=== PATIENT | male | born 2005 | race Caucasian/White ===

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

== ENCOUNTER 2023-01-19 10:27 | Outpatient (CLI) | payer MEDICAID ==
[2023-01-19] MEDS ORDERED: ALBUTEROL 1 PUFF INH STA (16:22)
--- NOTE | 2023-01-19 18:00 | XRAY Report ---
PROCEDURE: Chest 1 View X-Ray INDICATIONS: SHORTNESS OF BREATH TECHNIQUE: One view of the chest was acquired. COMPARISON: 06/18/2022 FINDINGS: Surgical changes and devices: None. Lungs and pleura: No pleural effusions or pneumothorax. Lungs are clear. Mediastinum: Mediastinal contours appear normal. Heart size is normal. Bones and chest wall: No suspicious bony lesions. Overlying soft tissues appear unremarkable. IMPRESSION: No acute cardiopulmonary findings Reviewed by: Garrett Platt MD on 01/19/2023 4:59 PM [facility] Approved by: Garrett Platt MD on 01/19/2023 4:59 PM [facility] Station ID: [id number]
== END 2023-01-19 10:28 | disposition home or self-care (01) ==
LOC: RT 10:27
PROVIDERS: ATTEND Nurse Practitioner Acute Care
DX: R06.02 Shortness of breath (principal)
CPT/HCPCS: 94060; 94729

== ENCOUNTER 2023-03-11 17:31 | Outpatient (CLI) | payer MEDICAID | END 2023-03-11 17:32 | disposition EMS.NT | LOC: EMS 17:31 | DX: Z03.89 Encounter for observation for other suspected diseases and conditions ruled out (principal) ==

== ENCOUNTER 2023-04-20 11:29 | Outpatient (CLI) | payer MEDICAID ==
--- NOTE | 2023-04-20 12:21 | XRAY Report ---
PROCEDURE: Ankle 2 View LT INDICATIONS: SPRAIN OF LEFT ANKLE TECHNIQUE: 2 views of the ankle were acquired. COMPARISON: Same day right-sided x-ray. FINDINGS: Bones: No fractures or dislocations. Ankle mortise is normally aligned. No suspicious bony lesions . Soft tissues: No tibiotalar joint effusion. Achilles tendon appears normal. IMPRESSION: No acute bony abnormality. No tibiotalar effusion. Reviewed by: Elijah Cardona on 04/20/2023 12:19 PM PDT Approved by: Elijah Cardona on 04/20/2023 12:19 PM PDT Station ID: [id number]
--- NOTE | 2023-04-20 16:42 | XRAY Report ---
PROCEDURE: Ankle 3 View RT INDICATIONS: SPRAIN OF RIGHT ANKLE TECHNIQUE: 3 views of the ankle were acquired. COMPARISON: None. FINDINGS: Bones: No fractures or dislocations. Ankle mortise is normally aligned. No suspicious bony lesions . There is an ossicle distal to the fibular tip. Soft tissues: No tibiotalar joint effusion. Achilles tendon appears normal. IMPRESSION: 1. There is an ossicle distal to the fibular tip. Given relatively mild soft tissue swelling, the fi nding may be related to remote injury. Recommend clinical correlation. A follow-up x-ray is suggested in 710 days if clinical symptoms persist. Reviewed by: Radha Taveras MD on 04/20/2023 4:40 PM PDT Approved by: Radha Taveras MD on 04/20/2023 4:40 PM PDT Station ID: [id number]
== END 2023-04-20 23:59 | disposition home or self-care (01) ==
LOC: DI.S 11:29
PROVIDERS: ATTEND Physician Assistant Medical
DX: S93.401A Sprain of unspecified ligament of right ankle, initial encounter (principal); S93.402A Sprain of unspecified ligament of left ankle, initial encounter

== ENCOUNTER 2023-04-27 08:00 | Outpatient (CLI) | payer MEDICAID ==
--- NOTE | 2023-04-27 13:32 | XRAY Report ---
PROCEDURE: Ankle 3 View RT INDICATIONS: RIGHT ANKLE FRACTURE TECHNIQUE: 3 views of the ankle were acquired. COMPARISON: None. FINDINGS: Bones: No fractures or dislocations. Ankle mortise is normally aligned. No suspicious bony lesions . Unchanged remote fracture of the lateral malleolus tip. Soft tissues: No tibiotalar joint effusion. Achilles tendon appears normal. IMPRESSION: No acute bony abnormality. Reviewed by: Elijah Cardona on 04/27/2023 11:26 AM PDT Approved by: Elijah Cardona on 04/27/2023 11:26 AM PDT Station ID: [id number]
== END 2023-04-27 23:59 | disposition home or self-care (01) ==
LOC: DI.WOS 08:00
PROVIDERS: ATTEND Physician Assistant Surgical
DX: S82.64XD Nondisplaced fracture of lateral malleolus of right fibula, subsequent encounter for closed fracture with routine healing (principal)

== ENCOUNTER 2023-05-08 22:48 | Emergency (ER) | payer MEDICAID ==
[2023-05-08 23:18] LABS: MUDS CUTOFF CONCENTRATIONS CUTOFF CONC BELOW:
[2023-05-08 23:23] LABS: BASOPHILS # (AUTO) 0.1 10^3/uL (0.0-0.1); BASOPHILS % (AUTO) 0.4 %; EOSINOPHILS # (AUTO) 0.1 10^3/uL (0.0-0.7); EOSINOPHILS % (AUTO) 0.5 %; HCT - HEMATOCRIT 42.6 % (42.0-52.0); HGB - HEMOGLOBIN 14.2 g/dL (14.0-18.0); LYMPHOCYTES # (AUTO) 2.3 10^3/uL (1.5-3.5); LYMPHOCYTES % (AUTO) 20.6 %; MEAN CORPUSCULAR HEMOGLOBIN 30.1 pg (27.0-31.0); MEAN CORPUSCULAR HGB CONC 33.3 g/dL (32.0-36.0); MEAN CORPUSCULAR VOLUME 90.4 fL (80.0-94.0); MEAN PLATELET VOLUME 9.4 fL (7.4-11.4); MONOCYTES # (AUTO) 1.3 10^3/uL (0.0-1.0); MONOCYTES % (AUTO) 11.7 %; NEUTROPHILS # (AUTO) 7.5 10^3/uL (1.5-6.6); NEUTROPHILS % (AUTO) 66.6 %; PLT - PLATELET COUNT 289 10^3/uL (130-450); RED BLOOD COUNT 4.71 10^6/uL (4.70-6.10); RED CELL DISTRIBUTION WIDTH 12.4 % (12.0-15.0); WHITE BLOOD COUNT 11.3 x10^3/uL (4.8-10.8)
[2023-05-08 23:24] LABS: BILIRUBIN,URINE NEGATIVE (NEGATIVE); GLUCOSE, URINE (UA) NEGATIVE (NEGATIVE); KETONES,URINE (UA) NEGATIVE (NEGATIVE); LEUKOCYTE ESTERASE, URINE NEGATIVE (NEGATIVE); NITRITE,URINE NEGATIVE (NEGATIVE); OCCULT BLOOD,URINE NEGATIVE (NEGATIVE); PH,URINE 6.5 PH (5.0-7.5); PROTEIN,URINE NEGATIVE (NEGATIVE); UROBILINOGEN,URINE 0.2 (NORMAL) E.U./dL (NORMAL)
[2023-05-08 23:31] LABS: CLARITY,URINE CLEAR (CLEAR)
[2023-05-08 23:38] LABS: AMPHETAMINE SCREEN,URINE NEGATIVE (NEGATIVE); BARBITURATE SCREEN,UR NEGATIVE (NEGATIVE); BENZODIAZEPINES SCREEN, URINE NEGATIVE (NEGATIVE); COCAINE SCREEN URINE NEGATIVE (NEGATIVE); METHADONE SCREEN, URINE NEGATIVE (NEGATIVE); METHAMPHETAMINES SCREEN, URINE NEGATIVE (NEGATIVE); OPIATE SCREEN, URINE NEGATIVE (NEGATIVE); OXYCODONE SCREEN, URINE NEGATIVE (NEGATIVE); PROPOXYPHENE SCREEN, URINE NEGATIVE (NEGATIVE); THC CANNABINOID SCREEN, URINE NEGATIVE (NEGATIVE); TRICYCLIC ANTIDEPRESSANT,URINE NEGATIVE (NEGATIVE)
[2023-05-08 23:40] LABS: ALBUMIN 4.2 g/dL (3.2-5.5); ALBUMIN/GLOBULIN RATIO 1.3 (1.0-2.2); ALKALINE PHOSPHATASE 104 IU/L (42-121); ALT ALANINE AMINOTRANSFERASE 20 IU/L (10-60); AST ASPARTATE AMINOTRANSFERASE 18 IU/L (10-42); BILIRUBIN,TOTAL 0.7 mg/dL (0.2-1.0); BUN - BLOOD UREA NITROGEN 23 mg/dL (6-20); CALCIUM 9.1 mg/dL (8.5-10.3); CARBON DIOXIDE - CO2 25 mmol/L (21-32); CHLORIDE 105 mmol/L (101-111); CREATININE 0.9 mg/dL (0.6-1.2); GFR - MDRD 109 (>89); GLUCOSE 118 mg/dL (70-100); LIPASE 28 U/L (22-51); POTASSIUM 3.7 mmol/L (3.5-5.0); SODIUM 138 mmol/L (135-145); TOTAL PROTEIN 7.4 g/dL (6.7-8.2)
--- NOTE | 2023-05-08 23:40 | ED Physician Documentation ---
PD HPI MHE - Stated complaint Stated Complaint: SI - Chief complaint Chief Complaint: MHE - History obtained from History obtained from: Patient - Additional information Additional information: HPI from patient Patient tells me "I was trying to commit suicide" (per patient). At approximately 9 PM tonight while at home, he cut his left wrist with a razor blade. Patient is right-hand dominant. Patient denies having history of any acts of self-harm in the past except for superficial arm cutting as a means of coping with stress rather than goal of hurting and/or killing himself. Patient's prescription medications are bupropion and guanfesin, but that he has not taken these for several days. Patient tells me that as soon as he cut his wrist tonight, he immediately regretted doing so. He is calm, pleasant, and cooperative on my H+P. Review of Systems Cardiac: reports: Reviewed and negative Respiratory: reports: Reviewed and negative GI: reports: Reviewed and negative Skin: reports: Laceration (s) Neurologic: denies: Focal weakness, Numbness Psychiatric: reports: Depressed, Suicidal. denies: Homicidal, Hallucinations, Delusions PD PAST MEDICAL HISTORY - Past Medical History Past Medical History: Yes Psych: ADD/ADHD, Other (tourette's syndrome) - Past Surgical History Past Surgical History: No - Present Medications Home Medications: Ambulatory Orders Medication Instructions Recorded Confirmed Cyclobenzaprine [Flexeril] 10 mg PO TID PRN #20 tablet 06/18/22 Ondansetron Odt [Zofran] 4 mg TL Q6H PRN #10 tablet 06/18/22 Doxycycline Monohydrate 100 mg PO BID #28 cap 12/09/22 - Allergies Allergies/Adverse Reactions: Allergies Allergy/AdvReac Type Severity Reaction Status Date / Time No Known Drug Allergies Allergy Verified 05/08/23 23:09 PD ED PE NORMAL - Vitals Vital signs reviewed: Yes - General General: Alert and oriented X 3, No acute distress, Well developed/nourished - Cardiac Cardiac: RRR, No murmur - Respiratory Respiratory: No respiratory distress, Clear bilaterally - Extremities Extremities: Other (left hand: brisk capillary refill in finger tips, strong radial pulse) - Neuro Neuro: No motor deficit (left hand/fingers with full flexion and extension), No sensory deficit (LTS intact left hand, fingers) PD ED PE EXPANDED - Extremities RAFAELA UE/Hands Visual: 1 - laceration (3 cm length with underlying exposed fascia and adipose tissue) Results - Vitals Vitals: Vital Signs - 24 hr 05/09/23 05/09/23 05/09/23 06:39 08:30 09:00 Temperature 36.5 C 35.8 C L Heart Rate 91 76 73 Respiratory 16 15 20 Rate Blood Pressure 117/69 106/66 O2 Saturation 100 100 97 05/09/23 11:45 Temperature 36.4 C L Heart Rate 72 Respiratory 18 Rate Blood Pressure 137/66 H O2 Saturation 100 Oxygen O2 Source Room air - Labs Labs: Laboratory Tests 05/08/23 05/08/23 05/08/23 23:07 23:12 23:12 WBC 11.3 H RBC 4.71 Hgb 14.2 Hct 42.6 MCV 90.4 MCH 30.1 MCHC 33.3 RDW 12.4 Plt Count 289 MPV 9.4 Neut # (Auto) 7.5 H Lymph # (Auto) 2.3 Gallia # (Auto) 1.3 H Eos # (Auto) 0.1 Baso # (Auto) 0.1 Absolute Nucleated RBC 0.00 Nucleated RBC % 0.0 Sodium 138 Potassium 3.7 Chloride 105 Carbon Dioxide 25 Anion Gap 8.0 BUN 23 H Creatinine 0.9 Estimated GFR (MDRD) 109 Glucose 118 H Calcium 9.1 Total Bilirubin 0.7 AST 18 ALT 20 Alkaline Phosphatase 104 Total Protein 7.4 Albumin 4.2 Globulin 3.2 Albumin/Globulin Ratio 1.3 Lipase 28 TSH 2.49 Urine Color YELLOW Urine Clarity CLEAR Urine pH 6.5 Ur Specific [place] 1.020 Urine Protein NEGATIVE Urine Glucose (UA) NEGATIVE Urine Ketones NEGATIVE Urine Occult Blood NEGATIVE Urine Nitrite NEGATIVE Urine Bilirubin NEGATIVE Urine Urobilinogen 0.2 (NORMAL) Ur Leukocyte Esterase NEGATIVE Ur Microscopic Review NOT INDICATED Urine Culture Comments NOT INDICATED Salicylates < 1.5 Urine Opiates Screen NEGATIVE Ur Oxycodone Screen NEGATIVE Urine Methadone Screen NEGATIVE Ur Propoxyphene Screen NEGATIVE Acetaminophen 0.2 Ur Barbiturates Screen NEGATIVE Ur Tricyclics Screen NEGATIVE Ur Phencyclidine Scrn NEGATIVE Ur Amphetamine Screen NEGATIVE U Methamphetamines Scrn NEGATIVE U Benzodiazepines Scrn NEGATIVE Urine Cocaine Screen NEGATIVE U Cannabinoids Screen NEGATIVE Ethyl Alcohol < 10.0 Procedures - Laceration (location) Upper extremity left Anterior Length in cm: 3 Wound type: Linear, Into subcut fat, Clean Neurovascular status: Sensory intact, Motor intact, Vascular intact Tendon involvement: Tendon intact Anesthesia: Lidocaine 1% Wound preparation: Chlorhexadine, Irrigated copiously NS, Wound explored Skin layer closure: Nylon, Interrupted (solitary simple interrupted suture in proximal-most part of laceration), Running (7 throws), Sutures - enter # (4-0) Other: Patient tolerated well, No complications, Neurovascular intact, Dressing applied PD Medical Decision Making - ED course Complexity details: reviewed results, re-evaluated patient, considered differential, d/w patient ED course: Options for treatment are discussed with patient during initial H&P. I asked him if he feels strongly about wanting to be discharged versus inpatient treatment, and he is not sure what his preference would be. He says he does feel he needs treatment for mental health problems, and would prefer not to be inpatient, but, at the same time, expresses that he would be willing to do so if it were recommended. I discussed with him my recommendation is telepsychiatric consult and he is agreeable. Departure - Departure Disposition: 65 Psych Hosp/Unit DC/Xfer Clinical Impression: Suicidal ideation Depression Qualifiers: Depression Type: unspecified Qualified Code(s): F32.A - Depression, unspecified Wrist laceration Qualifiers: Encounter type: initial encounter Condition: Stable Forms: PCP List Discharge Date/Time: 05/09/23 14:45
[2023-05-08 23:52] LABS: THYROID STIMULATING HORMONE 2.49 uIU/mL (0.34-5.60)
[2023-05-09] MEDS ORDERED: LIDOCAINE 1% 2 ML VIAL SUBQ STA (00:09)
[2023-05-09 00:17] LABS: ACETAMINOPHEN 0.2 ug/mL; ETOH - ETHANOL < 10.0 mg/dL
[2023-05-09 00:21] LABS: SALICYLATE < 1.5 mg/dL
[2023-05-09] MEDS ORDERED: BACITRACIN ZINC OINT 1 PACKET TOP STA (02:10)
--- NOTE | 2023-05-09 09:08 | TELEPSYCH PHYS NOTE ---
Telepsych Consultation Note Consult: Name: TERRY HARDWICK: 2005 DateandTime: 05/09/2023 11:30:01 AM [facility] EDLocation of the doctor: JENNA Length of consult: 50 This evaluation was conducted via video telepsychiatry with the assistance of onsite staff Reason for consult: Si with SA Requested by: Dr. Caruso History of Present Illness: Patient admitted through ED 05/08/23 with SI and recent SA by cutting his left wrist. He notes a history of previous SH through same manner. UDS negative. Patient off usual meds for a few days, bupropion and guanfacine. Patient reports he has been more depressed recently, feeling overwhelmed, sad for "months". He reports he has had significant bills- financial stress. He notes he has "lost my will to continue" and "I dont want to continue". He cut himself on the left wrist last night (ED doc notes no hesitation [place], deep wound) before deciding to come to ED instead. He says a friend brought him in. He has family near by, but doesnt like to talk to them or use them as a resource. He reports he lives alone, works [employer]. He reports he has been self harming on his legs and this "punishing myself", but this is the first time he has intended to kill himself. He reports he stopped meds a few days ago because he thought he might enlist in the [employer]- "mainly to get away from it all". Sleep has been "horrible"- sleeping too much sometimes, sometimes not at all. He reports he vapes daily. He stopped drinking 3 weeks ago, feeling he was getting addicted to it. Also intends to stop THC- again with thought he might enlist. Patient has no therapist, sees psychiatrist sometimes for meds. He cannot maintain his safety at this time, though he notes some regret that his friends would be sad if he . Generally, however, still unable to see a way through his current circumstances. Collateral Contacted: Amparo for not contacting the collateral:Patient meets criteria for admission Sleep issues?: YesSleep Quantity:see hpiSleep Quality: Psychiatric History/Treatment History: Past diagnoses: ADD, Tourette's Hospitalizations: No Current Treatment:YesMedication management:YesMedications:bupropion, guanfacineTherapy:No Suicide Assessment: PSS-3: 1) Over the past 2 weeks have you felt down, depressed or hopeless?Yes 2) Over the past 2 weeks have you had thoughts of killing yourself?Yes 3) Have you ever in your life attempted to kill yourself?Yes Within the past 6 months?Yes Description:cut left wrist PSS-3 Secondary Screen: 1) Positive on PSS-3 questions 2 & 3 active SI with a past attempt?Yes 2) Have you been thinking about how you might kill yourself?Yes 3) Have you had some intention of acting on your thoughts?Yes 4) Lifetime psychiatric hospitalization?No 5) Has drinking or substance abuse ever been a problem for you?Yes 6) Current irritability, agitation, or aggression?No PSS-3 Secondary Screen Scoring: Moderate Notes: recent attempt escalates severity in this case Mild(0-2) No current attempt and no plan/intent Moderate(3-4) No current attempt, Plan OR intent but not both Severe(5-6) Current Attempt with Plan AND intent [facility] Safety Assessment: Risk Factors Stressors: Attempts/Self-injury: YesDescription: Impulsivity:YesDescription: Drug/Alcohol History:YesDescription: Trauma History:Unknown-NA Access to firearms:No HI/Violence/Property destruction:No Legal: No Family Psych History:YesDescription:mom with depression Family History of suicide:No Protective Factors: Can handle stress well?No Mandaeism?Yes External: Social supports/ Therapeutic relationships: YesDescription:friends Relationship history: single Living situation: alone Employment: YesDescription:sally felipe Education: 12 Responsibility to family/children/work: YesDescription: Future orientation:No Health History: Medical History: Add Tourette's syndrome Medications & Freq: Bupropion Guanfacine Allergies: KNDA Mental Status Exam: Appearance and Attire: Psychomotor agitation:No abnormality Attitude and behavior:Guarded Speech:Soft Mood:Depressed, Anxious Affect:Constricted Thought process:Linear, Logical Thought content:Suicidal ideation, Guilt, Worthlessness Perception:No hallucinations Intel:Average Abstract:Appropriate Language:No abnormality Orientation:Oriented x 4 Sense:Normal Knowledge:Appropriate for education and socioeconomic status Memory:Intact Insight:Moderate impairment Judgement:Severe impairment, Impaired in response and decision making, Impaired in self care Gait:unable to assess Impression/Risk Assessment: Current Suicide Risk Elevated?Yes Current Violence Risk Elevated?No Issues with ability to care for self?No Summary: Patient is a 17 yo white male with a history of ADHD and Tourette's disorder who presents to ED after making a suicide attmpt by cutting his left wrist. Laceration is notably deep and without hesitation. Patient admits history of recurrent SH by cutting his legs as "self punishment" and the intensity of his depression is worsening. He is not sleeping. He notes financial strain and limited employment. He is isolated from family and lives alone, no therapist. .Patient has a history of alcohol and THC use, though reports cutting back recently. Patient reports increasingly desperate behaviors. He is appropriate for inpatient stabilization and is currently agreeable to go voluntarily. Diagnosis: F33.2 Major depressive disorder, recurrent severe without psychotic features, F95.2 Tourette's disorder CPT Codes: 17567 - Psychiatric Diagnostic Evaluation with Medical Services Treatment Plan: General: Patient is voluntary for inpatient hospitalization. If he changes his mind, would hold for evaluation for involuntary placement. Level of Care: inpatient Psychiatric Clearance: No Observation level 1:1 needed?: YesNotes:or close obs per unit protocol Pharmacological: resume home guanfacine at bedtime, or offer trazodone 50mg QHS for sleep support. Patient psychotic?No Therapy: supportive Follow up needed while in the hospital?: No Discussed plan with onsite team facilitator: Yes Who Dr. Joseph Caruso, attending Other: List names and roles of persons who participated in consult: Dr. Kevin Caruso
[2023-05-09 11:48] VITALS: BP 137/66
--- NOTE | 2023-05-09 13:37 | ED Physician Documentation ---
ED Addendum - Addendum Addendum: 05/09/23 13:34 The patient has been pleasant and interactive and cooperative here. He had been interviewed by telepsych and consensus between the patient and the psychiatrist was to go for inpatient voluntary treatment. Social work did send information off to some facilities and [facility] has beds available and subsequently did accept the patient. We will be getting BLS transfer of the patient for safety. The patient does take guanfacine daily but his medications are in his car at a separate place and we do not have it in stock in our hospital. Otherwise he takes Wellbutrin and he is okay being without that for now. He declines need for any other medicines at this time. Awaiting transfer. Disposition: The patient is transferred to acute psychiatric facility Plan: Continue current medications and what ever changes psychiatry would like.
== END 2023-05-09 14:45 ==
LOC: EDBD → MERGE 22:48 → ED 22:48
DX: S61.512A Laceration without foreign body of left wrist, initial encounter (principal); X78.8XXA Intentional self-harm by other sharp object, initial encounter; F32.A Depression, unspecified
CPT/HCPCS: 12002; 36415; 80053; 80306; 80307; 80320; 80329; 81003; 83690; 84443; 85025; 90834; 99285; A9270; Q3014; 81001; 87086

== ENCOUNTER 2023-06-01 08:00 | Outpatient (CLI) | payer MEDICAID ==
--- NOTE | 2023-06-01 14:45 | XRAY Report ---
PROCEDURE: Ankle 3 View RT INDICATIONS: RIGHT ANKLE FX TECHNIQUE: 3 views of the ankle were acquired. COMPARISON: 04/27/2023, 04/20/2023 FINDINGS: Bones: No acute fractures. Unfused ossicle at the fibular tip has not significantly changed and ther e is no evidence of bridging callus. Ankle mortise remains intact. Soft tissues: No tibiotalar joint effusion. Achilles tendon appears normal. IMPRESSION: 1. Accessory ossicle versus remote unfused distal fibular fracture. No change compared to prior exams and unlikely to represent acute or subacute injury. Reviewed by: Hemalatha Harley MD on 06/01/2023 2:43 PM PDT Approved by: Hemalatha Harley MD on 06/01/2023 2:43 PM PDT Station ID: [id number]
== END 2023-06-01 23:59 | disposition home or self-care (01) ==
LOC: DI.WOS 08:00
PROVIDERS: ATTEND Physician Assistant Surgical
DX: S82.64XD Nondisplaced fracture of lateral malleolus of right fibula, subsequent encounter for closed fracture with routine healing (principal)

== ENCOUNTER 2024-02-16 14:44 | Outpatient (CLI) | payer MEDICAID ==
[2024-02-16] MEDS: ALBUTEROL 1 PUFF INH STA (17:19)
== END 2024-02-16 14:45 | disposition home or self-care (01) ==
LOC: RT 14:44
DX: R94.2 Abnormal results of pulmonary function studies (principal)
CPT/HCPCS: 94060